=== PATIENT | female | born 1970 | race Caucasian/White ===

== ENCOUNTER 2020-12-16 12:37 | Emergency (ER) | payer OTHER, SELFPAY ==
[2020-12-16 12:52] VITALS: BP 150/84; PULSE 94; RESP 18; TEMP 36.3; O2SAT 97; BMI 34.0
[2020-12-16 13:09] VITALS: BP 148/87; PULSE 91; RESP 18; O2SAT 96
--- NOTE | 2020-12-16 13:45 | USCV_ITS ---
Geno Wetzel Age: 50 Gender: F : 1970 Exam Date: 12/16/2020 13:47 Ordering Phys: Felipa Addison Technologist: Arnav Hassan [place]am [place] [facility] [place]ication: EDEMA REDNESS AND SWELLING PROCEDURES: Venous duplex imaging was performed in only the left lower extremity. The following venous structures were evaluated: common femoral vein, profunda vein, proximal portion of the greater saphenous vein, superficial femoral vein, and the popliteal vein. In addition, the posterior tibial and peroneal trunk were evaluated. Serial compression, augmentation maneuvers, and spectral Doppler flow evaluation were performed. FINDINGS: Normal 2-D Doppler and augmentation and compressibility throughout the lower extremity venous structures. Additional imaging through the proximal calf veins also reveals no thrombus. Limited evaluation of the greater saphenous vein is patent with no thrombus. No abnormality in area of lower leg as indicated by patient. CONCLUSIONS No evidence of left lower extremity DVT. Dr. Gracie Laws DO (Electronically Signed) Final Date: 16 December 2020 14:53 S
[2020-12-16] MEDS: doxycycline 100 mg Tablet PO (13:57)
[2020-12-16] MEDS: ciprofloxacin 500 mg Tablet PO (13:57)
[2020-12-16] MEDS: HYDROcodone-acetaminophen 5-325 mg Tablet 1 TAB PO (14:00)
[2020-12-16 14:01] LABS: Basophils # 0.1 10^3/uL (0.0-0.1); Basophils % 0.7 %; Eosinophils # 0.4 10^3/uL (0.0-0.8); Eosinophils % 3.1 %; Hematocrit 39.1 % (37.0-47.0); Hemoglobin 13.1 g/dL (11.5-15.3); Lymphocytes # 3.6 10^3/uL (0.8-4.8); Lymphocytes % 30.7 %; Mean Corpuscular HGB Conc 33.5 g/dL (30.0-36.0); Mean Corpuscular Hemoglobin 30.5 pg (28.0-34.0); Mean Corpuscular Volume 91.1 fL (81-99); Mean Platelet Volume 9.3 fL (7.4-10.4); Monocytes # 0.8 10^3/uL (0.2-0.9); Monocytes % 6.9 %; Neutrophils # 6.39 10^3/uL (1.8-7.7); Neutrophils % 54.2 %; Nucleated Red Blood Cells % 0 %; Platelet Count 568 10^3/cmm (130-400); Red Blood Count 4.29 10^6/uL (4.1-5.3); Red Cell Distribution Width 13.7 % (12.1-15.1); White Blood Count 11.8 10^3/uL (4.0-10.0)
[2020-12-16 14:48] LABS: Alanine Aminotransferase 17 U/L (0-33); Albumin Level 4.1 g/dL (3.5-5.2); Alkaline Phosphatase 69 IU/L (35-105); Anion Gap 14.3 (5-19); Aspartate Amino Transferase 16 U/L (0-32); Blood Urea Nitrogen 17 mg/dL (6-20); Calcium 9.7 mg/dL (8.5-10.5); Carbon Dioxide 29 mmol/L (22-29); Chloride 97 mmol/L (98-107); Globulin 3.8 g/dL (1.3-4.6); Glomerular Filtration Rate 75.6 mL/min (90-130); Glucose 99 mg/dL (65-115); Osmolality Calculated 284 mOsm/kg (285-295); Potassium 4.3 mmol/L (3.5-5.1); Sodium 136 mmol/L (136-145); Total Bilirubin 0.3 mg/dL (0.15-1.2); Total Protein 7.9 g/dL (6.6-8.7)
--- NOTE | 2020-12-16 14:55 | ED_ITS ---
HPI - Extremity Problem General: Chief complaint: Extremity Problem,Nontraumatic Stated complaint: rash, edema, pain LLE Time Seen by Provider: 12/16/20 13:04 Source: patient Mode of arrival: ambulatory Limitations: no limitations History of Present Illness: HPI Narrative: Pleasant 50-year-old female patient presents to the emergency department with complaints of left lower extremity pain and swelling. She reports utilized a skin debridement tool to remove skin from her foot on 12/03/2020. She states on 12/04/2020, symptoms of redness swelling and pain started. She reports went to urgent care on 12/06/2020, received cephalexin as antibiotic for cellulitis of the left lower extremity. She went to urgent care today, was advised to come to the ED due to concern of blistering formation and increased swelling and pain of the left lower extremity. She denies fever chills, denies nausea vomiting. Reports compliance with cephalexin use. She reports history of MRSA, reports left lower extremity has improved some. She reports blistering has improved as well as redness. She reports leg was red all the way to the groin and now is only localized to the foot. MD Complaint: extremity pain and extremity swelling Onset (ago): day(s) Pain Consistency: intermittent Location: left and lower extremity Quality: burning and aching Radiation: proximal Relieving factors: immobilization and rest Exacerbating factors: range of motion, weight bearing, walking and exertion Associated symptoms: Reports no associated symptoms; Deny chest pain, fever(s) or rash Review of Systems General: Reports: 10 or more systems reviewed and unremarkable except in HPI and below Const: Denies: fever(s), chills or diaphoresis Eyes: Denies: blurry vision or eye redness ENMT: Denies: throat pain, dental pain or disequilibrium Card: Denies: chest pain, palpitations or irregular heart rhythm Resp: Denies: dyspnea, productive cough, non-productive cough or wheezing GI: Denies: abdominal pain, nausea or vomiting : Denies: difficulty voiding or dysuria Musc: Reports: extremity pain and extremity swelling; Denies: neck pain, back pain, joint pain or joint warmth Skin/Breast: Denies: rash or pruritus Neuro: Denies: headache(s), weakness in extremities or behavioral changes Psych: Denies: anxiety or depression Roge/Lymph: Denies: easy bruising PFSH ED PFSH: Social History Smoking and tobacco status: never smoked Alcohol intake: current Alcohol intake frequency: holidays/special occasions only Physical Exam Const: COMMON NORMALS: no acute distress, patient oriented x3, healthy appearing and alert GENERAL APPEARANCE: cooperative, comfortable and well hydrated HENMT: COMMON NORMALS: normocephalic, Normal external nose present and moist oral mucous membranes HEAD & SCALP: normocephalic NOSE: Normal external nose present Eye: COMMON NORMALS: Equal, round and reactive pupils present and EOMs intact bilaterally GENERAL EYE: appearance normal, both eyes and all related structures PUPIL: Yes Equal, round and reactive pupils present Neck/C-Spine: COMMON NORMALS: full ROM and no lymphadenopathy GENERAL: Yes normal visual inspection and Yes trachea midline CERVICAL SPINE: Yes cervical ROM normal Lymph: LYMPHATIC: no lymphadenopathy noted Chest: COMMONS NORMALS: normal inspection of the chest and normal palpation of entire chest wall Resp: COMMON NORMALS: normal respiratory effort, No retractions, No use of accessory muscles and clear to auscultation bilaterally EFFORT & INSPECTION: Yes able to speak in complete sentences AUSCULTATION: clear to auscultation bilaterally Cardio: COMMON NORMALS: regular rhythm, S1 normal heart sound present and S2 normal heart sound present RHYTHM: regular rhythm HEART SOUNDS: S1 normal heart sound present and S2 normal heart sound present GI: COMMON NORMALS: Soft to palpation and non-tender INSPECTION: Yes normal to inspection PALPATION: Yes Soft to palpation : COMMON NORMALS: Yes no CVA tenderness BLADDER/KIDNEY EXAM: Yes no CVA tenderness Back/Pelvis: COMMON NORMALS: no CVA tenderness and thoracic and lumbar spine normal to inspection Extremity: COMMON NORMALS: normal to inspection, full ROM and capillary refill normal GENERAL: Yes normal exam except as noted OTHER: unilateral edema/lymphedema LLE Neuro: COMMON NORMALS: patient oriented x3 and no focal motor deficits SENSORIUM/ORIENTATION: Yes alert SPEECH: speech normal Psych: COMMON NORMALS: mental status grossly normal, Normal thought process present and cooperative ACTIVITY/MOTOR BEHAVIOR: Yes appropriate eye contact THOUGHT PROCESS: Normal thought process present Skin: COMMON NORMALS: no rashes or lesions noted and turgor normal GENERAL SKIN EXAM: no rashes or lesions noted, elasticity normal and turgor normal WOUNDS: Yes wounds noted (Circumferential areas of erythema surrounding the left ankle) other (Beulla to the plantar medial side where skin was removed present.) NAILS: normal OTHER: Negative lymphadenitis present Course Vital Signs: Vital signs: Vital Signs Temperature 97.3 F L 12/16/20 12:52 Pulse Rate 88 12/16/20 15:56 Respiratory Rate 16 12/16/20 15:56 Blood Pressure 141/82 12/16/20 15:56 Pulse Oximetry 97 12/16/20 15:56 MDM - Extremity (Nontraumatic) MDM Narrative: Medical decision making narrative: 50-year-old female patient presents to the emergency department with history of cellulitis to the left lower extremity, onset 12/04/2020; she presents to the ED at the request of urgent care as 10-day dosing of cephalexin has not improved cellulitis. She has a history of MRSA, cephalexin not effective with MRSA treatment. CBC with slightly elevated white blood count of 11.8 thousand. Chemistry unremarkable. She did not exhibit fever chills nausea vomiting. She reported left lower extremity had improved over the past several days, venous ultrasound completed secondary to edema, negative DVT appreciated. No abscess or skin thickening appreciated on venous Doppler. Wounds to the left lower extremity closed, no drainage noted, advised to leave wounds open to air and to cleanse with sterile water daily. Advised no use of ointments or skin lotions. Referral to wound care completed, social services designee will assist with referral. Patient was placed on Cipro for Pseudomonas coverage and doxycycline for MRSA. Advised to return the emergency department she develop worsening symptoms. Lab Data: Labs: Lab Results 12/16/20 12/16/20 Range/Units 13:45 13:45 WBC 11.8 H (4.0-10.0) 10^3/ uL RBC 4.29 (4.1-5.3) 10^6/u L Hgb 13.1 (11.5-15.3) g/dL Hct 39.1 (37.0-47.0) % MCV 91.1 (81-99) fL MCH 30.5 (28.0-34.0) pg MCHC 33.5 (30.0-36.0) g/dL RDW 13.7 (12.1-15.1) % Plt Count 568 H (130-400) 10^3/c mm MPV 9.3 (7.4-10.4) fL Neut % (Auto) 54.2 % Lymph % (Auto) 30.7 % Grimes % (Auto) 6.9 % Eos % (Auto) 3.1 % Baso % (Auto) 0.7 % Neut # (Auto) 6.39 (1.8-7.7) 10^3/u L Lymph # (Auto) 3.6 (0.8-4.8) 10^3/u L Grimes # (Auto) 0.8 (0.2-0.9) 10^3/u L Eos # (Auto) 0.4 (0.0-0.8) 10^3/u L Baso # (Auto) 0.1 (0.0-0.1) 10^3/u L Nucleated RBC % (a uto) 0 % Nucleated RBCs # 0.0 /100WBC Sodium 136 (136-145) mmol/L Potassium 4.3 (3.5-5.1) mmol/L Chloride 97 L (98-107) mmol/L Carbon Dioxide 29 (22-29) mmol/L Anion Gap 14.3 (5-19) BUN 17 (6-20) mg/dL Creatinine 0.8 (0.5-0.9) mg/dL GFR Calculation 75.6 L (90-130) mL/min Glucose 99 (65-115) mg/dL Calculated Osmolal ity 284 L (285-295) mOsm/k g Calcium 9.7 (8.5-10.5) mg/dL Total Bilirubin 0.3 (0.15-1.2) mg/dL AST 16 (0-32) U/L ALT 17 (0-33) U/L Alkaline Phosphata se 69 (35-105) IU/L Total Protein 7.9 (6.6-8.7) g/dL Albumin 4.1 (3.5-5.2) g/dL Globulin 3.8 (1.3-4.6) g/dL Imaging Data^: Xray Ortho: Radiologist's impression: Ultrasound Report Signed Patient: Geno Wetzel Unit #: [id number] : 1970 Age/Sex: 50 / F ADM Date: 12/16/20 Loc: ER Room/Bed: Attending Dr: Ordering Provider/Ordering MD: Felipa Addison Date of Service: 12/16/20 Procedure(s): [place] [id number] Accession Number(s): [id number] Report Number: [id number] Geno Wetzel Age: 50 Gender: F : 1970 Exam Date: 12/16/2020 13:47 Ordering Phys: Felipa Addison Technologist: Arnav Hassan Exam Location: [facility] [place] Indication: EDEMA REDNESS AND SWELLING PROCEDURES: Venous duplex imaging was performed in only the left lower extremity. The following venous structures were evaluated: common femoral vein, profunda vein, proximal portion of the greater saphenous vein, superficial femoral vein, and the popliteal vein. In addition, the posterior tibial and peroneal trunk were evaluated. Serial compression, augmentation maneuvers, and spectral Doppler flow evaluation were performed. FINDINGS: Normal 2-D Doppler and augmentation and compressibility throughout the lower extremity venous structures. Additional imaging through the proximal calf veins also reveals no thrombus. Limited evaluation of the greater saphenous vein is patent with no thrombus. No abnormality in area of lower leg as indicated by patient. CONCLUSIONS No evidence of left lower extremity DVT. Dr. Gracie Laws DO (Electronically Signed) Final Date: 16 December 2020 14:53 S Discharge Plan Discharge Patient Disposition: Home Clinical Impression: Cellulitis of left leg, Acute lymphadenitis of lower extremity Condition: Stable Prescriptions: New ciprofloxacin HCl 500 mg tablet 500 mg PO BID Qty: 20 RF: 0 doxycycline hyclate 100 mg capsule 100 mg PO BID 10 Days Qty: 20 RF: 0 hydrocodone-acetaminophen 5-325 mg tablet 1 tab PO Q4H PRN (Reason: pain) Qty: 7 RF: 0 Held tizanidine [Zanaflex] 2 mg capsule 2 mg PO TID RF: 0 Hold Instructions: Resume on 12/27/20. Discontinued cephalexin 500 mg capsule 500 mg PO TID 3 Days Qty: 9 RF: 0 No Action ibuprofen 800 mg tablet 800 mg PO TID RF: 0 pregabalin 50 mg capsule 50 mg PO BID RF: 0 estradiol 0.05 mg/24 hr patch semiweekly transdermal RF: 0 Discharge Orders: Discharge ED (Routine); Ordered 12/16/20 Ordered By: Felipa Addison Discharge Diet: Usual diet Discharge Activity: Limit activity as instructed Patient Instructions: Crutch Instructions (ED), Cellulitis (ED), Lymphadenopathy (ED), Opioid Safety Activity Restrictions/Additional Instructions: Keep the left lower extremity elevated as much as possible as this will help with pain and swelling Utilize crutches to limit ambulation, weightbearing health services information specialist will be contacting you with a follow-up appointment with wound care for infection. Complete antibiotics until all gone Continue ibuprofen as needed for pain, may take Tylenol as needed for mild pain, reserve hydrocodone for moderate to severe pain Return to the emergency department if you develop fever, vomiting or worsening symptoms such as redness and swelling that tracks up left lower extremity. Cleanse left lower extremity with sterile water and soap once daily, leave wounds open to air. 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
[2020-12-16 15:56] VITALS: BP 141/82; PULSE 88; RESP 16; O2SAT 97
--- NOTE | 2020-12-17 15:12 | DCPLANNER ---
manager skilled had message to schedule a follow up appointment for patient with wound care. manager skilled called the wound care clinic, spoke with Darion, gave clinic patients information, clinic will call patient with appointment information.
--- NOTE | 2020-12-29 15:21 | DCPLANNER ---
Patient had a follow up appointment with Wound Care - patient did attend appointment.
== END 2020-12-16 15:57 | disposition home or self-care (01) ==
PROVIDERS: Emergency Provider Nurse Practitioner Family
DX: L03.116 Cellulitis of left lower limb (principal); L04.3 Acute lymphadenitis of lower limb
CPT/HCPCS: 80053; 85025; 87040; 93971; 99283

== ENCOUNTER 2020-12-23 09:50 | Outpatient (CLI) | payer OTHER, SELFPAY | END 2020-12-23 09:51 | disposition home or self-care (01) | LOC: WOUND 09:50 | PROVIDERS: Visit Provider Nurse Practitioner Family | DX: L97.522 Non-pressure chronic ulcer of other part of left foot with fat layer exposed (principal) | CPT/HCPCS: G0463 ==

== ENCOUNTER 2021-01-06 09:00 | Outpatient (CLI) | payer OTHER, SELFPAY | END 2021-01-06 09:01 | disposition home or self-care (01) | LOC: WOUND 09:01 | PROVIDERS: Visit Provider Nurse Practitioner Family | DX: Z09 Encounter for follow-up examination after completed treatment for conditions other than malignant neoplasm (principal) | CPT/HCPCS: 99212; A6530 ==

== ENCOUNTER 2021-05-19 06:00 | Outpatient (RCR) | payer SELFPAY | END 2021-05-28 23:59 | disposition home or self-care (01) | LOC: SPT 06:00 | PROVIDERS: PCP Family Medicine; Referring Provider Family Medicine; Visit Provider Family Medicine | DX: M54.40 Lumbago with sciatica, unspecified side (principal); G89.29 Other chronic pain | CPT/HCPCS: 97162 ==

== ENCOUNTER → 2021-06-20 10:36 | Outpatient (BNVA) | payer OTHER, SELFPAY | PROVIDERS: PCP Family Medicine; Visit Provider Family Medicine | DX: R60.0 Localized edema (principal) | CPT/HCPCS: 80048 ==

== ENCOUNTER 2021-07-07 12:57 | Outpatient (CLI) | payer OTHER, SELFPAY ==
--- NOTE | 2021-07-07 12:45 | USCV_ITS ---
Geno Wetzel Age: 51 Gender: F : 1970 Exam Date: 07/07/2021 13:08 Ordering Phys: Michaeal Okeefe DO Technologist: Exam [place] [facility] [place]: HISTORY: PROCEDURES: Left duplex Venous Insufficiency study of the Deep and Superficial systems was carried out according to normal protocol with the patient in supine positon for deep system and dependent position for the superficial system. FINDINGS: All deep veins demonstrated compressibility without evidence of intraluminal thrombus or increased echogenicity. Spectral analysis of Doppler signals demonstrates normal response to compression maneuvers indicating patency without obstruction. Reflux determinations were made with the patient in the dependent position, the weight being on the contralateral leg. Vein measurements and reflux times are listed below were applicable. No notable reflux was seen at this time. CONCLUSIONS No evidence of DVT in the above-mentioned identifiable veins on the left side. No significant venous reflux Normal/slightly dilated superficial veins Dr Anel Herrera MD [facility] (Electronically Signed) Final Date: 11 July 2021 13:53 S
== END 2021-07-07 12:58 | disposition home or self-care (01) ==
PROVIDERS: PCP Family Medicine; Visit Provider Family Medicine
DX: R60.0 Localized edema (principal)
CPT/HCPCS: 93971

== ENCOUNTER 2021-07-25 09:14 | Outpatient (CLI) | payer OTHER, SELFPAY ==
--- NOTE | 2021-07-25 09:00 | MM_ITS ---
WS: [id number] BILATERAL DIGITAL SCREENING MAMMOGRAPHY WITH CAD CLINICAL INFORMATION: screening mammogram HISTORY: Screening mammogram. No current complaints. COMPARISON: None. TECHNIQUE: Bilateral CC and MLO views. FINDINGS: Scattered fibroglandular densities bilaterally. Ovoid asymmetric density upper outer right breast melani suring 10 mm. Recommend spot compression views and ultrasound for further evaluation. Left breast is unremarkable. MM/[place] [id number] IMPRESSION: BI-RADS: 0-Incomplete: Need additional imaging evaluation FOLLOW UP: Need Additional Imaging Recommend RIGHT diagnostic mammography and ultrasound in further evaluation.
== END 2021-07-25 09:15 | disposition home or self-care (01) ==
LOC: RADSHAW 09:18
PROVIDERS: PCP Family Medicine; Visit Provider Family Medicine
DX: Z12.31 Encounter for screening mammogram for malignant neoplasm of breast (principal)
CPT/HCPCS: 77067

== ENCOUNTER → 2021-08-02 10:43 | Outpatient (BNVA) | payer OTHER, SELFPAY | PROVIDERS: PCP Family Medicine; Referring Provider Family Medicine; Visit Provider Anesthesiology Pain Medicine | DX: G89.29 Other chronic pain (principal); M51.16 Intervertebral disc disorders with radiculopathy, lumbar region; M48.061 Spinal stenosis, lumbar region without neurogenic claudication; M79.604 Pain in right leg; M19.90 Unspecified osteoarthritis, unspecified site; Z79.891 Long term (current) use of opiate analgesic | CPT/HCPCS: 99205 ==

== ENCOUNTER → 2021-08-15 14:16 | Outpatient (BNVA) | payer OTHER, SELFPAY | PROVIDERS: PCP Family Medicine; Visit Provider Anesthesiology Pain Medicine | DX: G89.29 Other chronic pain (principal); M51.16 Intervertebral disc disorders with radiculopathy, lumbar region | CPT/HCPCS: 62323; J1040; J3490 ==

== ENCOUNTER → 2021-08-23 10:31 | Outpatient (BNVA) | payer OTHER, SELFPAY | PROVIDERS: PCP Family Medicine; Visit Provider Orthopaedic Surgery | DX: M51.16 Intervertebral disc disorders with radiculopathy, lumbar region (principal) | CPT/HCPCS: 72110 ==

== ENCOUNTER → 2021-08-29 10:13 | Outpatient (BNVA) | payer OTHER, SELFPAY | PROVIDERS: PCP Family Medicine; Visit Provider Anesthesiology Pain Medicine | DX: G89.29 Other chronic pain (principal); M48.062 Spinal stenosis, lumbar region with neurogenic claudication; M51.16 Intervertebral disc disorders with radiculopathy, lumbar region; M47.816 Spondylosis without myelopathy or radiculopathy, lumbar region; M79.604 Pain in right leg | CPT/HCPCS: 99214 ==

== ENCOUNTER 2021-09-01 10:16 | Outpatient (CLI) | payer OTHER, SELFPAY ==
--- NOTE | 2021-09-01 10:30 | MM_ITS ---
WS: [id number] RIGHT DIGITAL MAMMOGRAPHY WITH CAD CLINICAL INFORMATION: abnormal mammo COMPARISON: July 25, 2021 TECHNIQUE: 3 views of the right breast were obtained. FINDINGS: Scattered fibroglandular densities of the right breast. Stable ovoid asymmetry upper outer right amara st measuring 10 mm. Ultrasound is pending. ULTRASOUND BREAST RIGHT TECHNIQUE: Ultrasound right breast focused area of concern. CLINICAL INFORMATION: abnormal mammo FINDINGS: Ultrasound right breast at the 9 to 12:00 position. Underlying dense parenchymal tissue appears to co rrespond to the mammographic findings. Incidental ductal ectasia. No suspicious cystic or solid lesio ns. No lesions to target for biopsy. Recommend return to annual screening mammography. MM/[place] [id number] IMPRESSION: BI-RADS: 2-Benign FOLLOW UP: 1 Year Follow-up Recommend return to annual screening mammography.
--- NOTE | 2021-09-01 11:00 | US_ITS ---
WS: [id number] RIGHT DIGITAL MAMMOGRAPHY WITH CAD CLINICAL INFORMATION: abnormal mammo COMPARISON: July 25, 2021 TECHNIQUE: 3 views of the right breast were obtained. FINDINGS: Scattered fibroglandular densities of the right breast. Stable ovoid asymmetry upper outer right amara st measuring 10 mm. Ultrasound is pending. ULTRASOUND BREAST RIGHT TECHNIQUE: Ultrasound right breast focused area of concern. CLINICAL INFORMATION: abnormal mammo FINDINGS: Ultrasound right breast at the 9 to 12:00 position. Underlying dense parenchymal tissue appears to co rrespond to the mammographic findings. Incidental ductal ectasia. No suspicious cystic or solid lesio ns. No lesions to target for biopsy. Recommend return to annual screening mammography. US/US breast RT limited* [id number] IMPRESSION: BI-RADS: 2-Benign FOLLOW UP: 1 Year Follow-up Recommend return to annual screening mammography.
== END 2021-09-01 10:17 | disposition home or self-care (01) ==
PROVIDERS: PCP Family Medicine; Visit Provider Family Medicine
DX: R92.8 Other abnormal and inconclusive findings on diagnostic imaging of breast (principal)
CPT/HCPCS: 76642; 77065

== ENCOUNTER 2021-09-01 10:45 | Outpatient (CLI) | payer OTHER, SELFPAY ==
--- NOTE | 2021-09-01 11:45 | MR_ITS ---
WS: [id number] MRI LUMBAR SPINE NONCONTRAST TECHNIQUE: Sagittal T1, T2 and STIR imaging. Axial T1 and T2 imaging. CLINICAL INFORMATION: M51.16 - Intervertebral disc disorders with radiculopathy... COMPARISON: None. FINDINGS: Mild lumbar curve. No acute compression. Prior postoperative changes laminectomy defects and partial discectomy L5-S1. Grade 1 anterolisthesis L4 on L5. L1-L2: Normal. L2-L3: Normal. L3-L4: No significant disc bulging. Mild facet arthropathy. Small left foraminal protrusion with mild left and no significant right foraminal narrowing. Mild facet arthropathy. L4-L5: Slight anterolisthesis L4 on L5. Disc osteophyte complex with endplate ridging. Central and ri ght pericentral disc protrusion impinges the traversing right greater than left L5 nerve roots. Moder ate central canal stenosis. Mild right L4-5 foraminal narrowing. Moderate to advanced facet arthropat hy with ligamentum flavum flavum hypertrophy. L5-S1: Mild disc bulging with osteophytic ridging. Contact of the traversing right greater than left S1 nerve roots. Right hemilaminectomy. Foramen are patent. Visualized pelvic bony structures: Normal. Paravertebral soft tissues: Normal. MR/MR lumbar spine wo con* [id number] IMPRESSION: 1. Mild lumbar curve. No acute compression. 2. Grade 1 anterolisthesis L4 on L5 with moderate central canal stenosis. Impi ngement on the traversing right greater than left L5 nerve roots. Mild right L4 -5 foraminal narrowing. 3. Prior right hemilaminectomy L5-S1. Mild residual disc osteophytic ridging w ith slight contact of the right S1 nerve root. 4. Small left foraminal protrusion L3-4 contacts the exiting left L3 nerve grace t with mild left foraminal narrowing. 5. Advanced facet arthropathy L4-5.
== END 2021-09-01 10:46 | disposition home or self-care (01) ==
LOC: RADSHAW 10:46
PROVIDERS: PCP Family Medicine; Visit Provider Orthopaedic Surgery
DX: M51.16 Intervertebral disc disorders with radiculopathy, lumbar region (principal); G89.29 Other chronic pain; M47.816 Spondylosis without myelopathy or radiculopathy, lumbar region; M51.26 Other intervertebral disc displacement, lumbar region
CPT/HCPCS: 72148

== ENCOUNTER → 2021-09-15 10:46 | Outpatient (BNVA) | payer OTHER, SELFPAY | PROVIDERS: PCP Family Medicine; Visit Provider Anesthesiology Pain Medicine | DX: G89.29 Other chronic pain (principal); M48.062 Spinal stenosis, lumbar region with neurogenic claudication; M51.16 Intervertebral disc disorders with radiculopathy, lumbar region; M47.816 Spondylosis without myelopathy or radiculopathy, lumbar region; M79.604 Pain in right leg | CPT/HCPCS: 99214 ==

== ENCOUNTER → 2021-10-10 11:10 | Outpatient (BNVA) | payer OTHER, SELFPAY | PROVIDERS: PCP Family Medicine; Visit Provider Family Medicine | DX: Z01.818 Encounter for other preprocedural examination (principal) | CPT/HCPCS: 80053; 85025 ==

== ENCOUNTER → 2021-11-28 15:40 | Outpatient (BNVA) | payer OTHER, SELFPAY | PROVIDERS: PCP Family Medicine; Visit Provider Obstetrics & Gynecology | DX: Z12.4 Encounter for screening for malignant neoplasm of cervix (principal) | CPT/HCPCS: 87624 ==

== ENCOUNTER 2022-02-07 10:22 | Outpatient (RCR) | payer OTHER, SELFPAY | END 2022-02-25 23:59 | disposition home or self-care (01) | LOC: SPT 10:22 | PROVIDERS: PCP Family Medicine; Referring Provider Physician Assistant; Visit Provider Physician Assistant | DX: Z48.89 Encounter for other specified surgical aftercare (principal); Z98.890 Other specified postprocedural states | CPT/HCPCS: 97161 ==

== ENCOUNTER 2022-11-09 10:43 | Outpatient (CLI) | payer MEDICARE, SELFPAY ==
--- NOTE | 2022-11-09 10:52 | MM_ITS ---
WS: [id number] BILATERAL SCREENING DIGITAL TOMOSYNTHESIS MAMMOGRAM WITH CAD HISTORY: SCREENING COMPARISON: 07/25/2021 and 09/01/2021 Bilateral CC and MLO views with tomosynthesis and synthetic mammography submitted. Computer aided det ection analyzed. Breast composition: The breasts are heterogeneously dense, which may obscure small masses. No suspici ous masses, microcalcifications or architectural distortion. MM/[place] [id number] IMPRESSION: BI-RADS: 1-Negative FOLLOW UP: 1 Year Follow-up
== END 2022-11-09 10:44 | disposition home or self-care (01) ==
PROVIDERS: PCP Family Medicine; Visit Provider Nurse Practitioner Family
DX: Z12.31 Encounter for screening mammogram for malignant neoplasm of breast (principal)
CPT/HCPCS: 77063; 77067

== ENCOUNTER 2023-01-18 13:12 | Outpatient (CLI) | payer MEDICARE, MEDICAID, SELFPAY ==
--- NOTE | 2023-01-18 13:32 | XR_ITS ---
WS: [id number] EXAMINATION: XR knee LT 3V* [id number] REASON FOR EXAM: ACUTE PAIN OF LEFT KNEE/MUSCLE STRAIN COMPARISON: None available. ORDER DATE: 01/18/2023 1:34 PM FINDINGS: There is no sign of any acute osseous or articular abnormality. There are no specific soft tissue abn ormalities. XR/XR knee LT 3V* [id number] IMPRESSION: No acute abnormality
== END 2023-01-18 13:13 | disposition home or self-care (01) ==
LOC: RAD 13:21
PROVIDERS: PCP Family Medicine; Visit Provider Nurse Practitioner Family
DX: S86.912A Strain of unspecified muscle(s) and tendon(s) at lower leg level, left leg, initial encounter (principal); M25.562 Pain in left knee; X58.XXXA Exposure to other specified factors, initial encounter
CPT/HCPCS: 73562

== ENCOUNTER 2023-03-07 04:59 | Emergency (ER) | payer MEDICARE, MEDICAID, SELFPAY ==
--- NOTE | 2023-03-07 05:02 | XRR_ITS ---
PROCEDURE INFORMATION: Exam: XR Chest Exam date and time: 03/07/2023 5:06 AM Age: 53 years old Clinical indication: Pain; Chest pressure; Additional info: Cp TECHNIQUE: Imaging protocol: Radiologic exam of the chest. Views: 1 view. COMPARISON: No relevant prior studies available. FINDINGS: Lungs: No consolidation. Pleural spaces: Unremarkable. No pleural effusion. No pneumothorax. Heart/Mediastinum: No cardiomegaly. Bones/joints: No acute fracture. XR/XR chest 1V portable [id number] IMPRESSION: No acute findings.
--- NOTE | 2023-03-07 05:02 | ECG_ITS ---
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 Measurements Intervals [place] Rate: 60 P: 45 [place]: 177 QRS: -3 QRSD: 81 T: 48 QT: 399 QTc: 400 Interpretive Statements SINUS RHYTHM POSSIBLE LEFT ATRIAL ENLARGEMENT [-0.1mV P-WAVE IN V1/V2] POSSIBLE LEFT VENTRICULAR HYPERTROPHY [VOLTAGE CRITERIA PLUS LAE OR QRS WIDENING] No previous ECG available for comparison Electronically Signed On 03-07-2023 20:59:49 CDT by Anel Herrera M.D. [id number]
[2023-03-07 05:04] VITALS: BP 132/86; PULSE 69; RESP 18; TEMP 36.4; O2SAT 98; BMI 26.4
--- NOTE | 2023-03-07 05:09 | ED_ITS ---
Documented by User: Michaelle Sofia MD 03/07/23 05:13 HPI - Chest Pain General: Chief Complaint: Chest Pain Stated Complaint: Chest pain Time Seen by Provider: 03/07/23 05:19 Source: patient Mode of arrival: ambulatory Limitations: no limitations History of Present Illness: 53-year-old female states she been having some chest pain since last night 1130. She states that been a burning pain in her chest she denies any fever or cough. She states she just got over a viral GI bug and had not taken her Lasix in 2 days and feels like she is a little bloated as well. She denies any worsening proving factors she is in no distress here. Associated symptoms: Deny abdominal pain, dyspnea, fever(s), nausea or vomiting Review of Systems Const: Denies: fever(s), chills or change in appetite Eyes: Denies: eye discomfort ENMT: Denies: throat pain or dental pain Card: Reports: chest pain Resp: Denies: dyspnea GI: Denies: abdominal pain, nausea, vomiting or diarrhea : Denies: dysuria Musc: Denies: neck pain or back pain Neuro: Denies: headache(s) Roge/Lymph: Denies: easy bruising All/Imm: Denies: urticaria PFSH ED PFSH: Medical History Asthma Bipolar 2 disorder Chronic low back pain with sciatica Degenerative disc disease Endometriosis History of ectopic History of ovarian cyst Surgical History H/O microdiscectomy L5-S1 H/O tubal ligation H/O: hysterectomy History of 3 sections History of appendectomy History of D&C History of elbow surgery Right History of exploratory laparotomy History of tympanostomy tube placement Family History Father Cancer COLON Other Diabetes FHx: cataracts Hypertension Lung disease Social History Smoking and tobacco status: never smoked Second hand smoke exposure: No Alcohol intake: current Alcohol intake frequency: holidays/special occasions only Alcohol type: beer and wine Substance/Drug Use: never Physical Exam Const: COMMON NORMALS: no acute distress, patient oriented x3 and healthy appearing HENMT: COMMON NORMALS: normocephalic and atraumatic HEAD & SCALP: normocephalic and atraumatic Eye: COMMON NORMALS: conjunctivae normal CONJUNCTIVA: Yes conjunctivae normal Neck/C-Spine: COMMON NORMALS: full ROM and supple Chest: COMMONS NORMALS: normal inspection of the chest and normal palpation of entire chest wall Resp: COMMON NORMALS: normal respiratory effort, No retractions, No use of accessory muscles and clear to auscultation bilaterally AUSCULTATION: clear to auscultation bilaterally Cardio: COMMON NORMALS: regular rate, regular rhythm and No murmurs present (Cardio) RATE: regular rate RHYTHM: regular rhythm GI: COMMON NORMALS: Normal to inspection, nondistended, normoactive bowel sounds present, Soft to palpation, non-tender and no masses PALPATION: Yes Soft to palpation Extremity: COMMON NORMALS: normal to inspection and full ROM Neuro: COMMON NORMALS: patient oriented x3, moves all extremities and no focal motor deficits Psych: COMMON NORMALS: mental status grossly normal, Normal thought process present and cooperative THOUGHT PROCESS: Normal thought process present Skin: COMMON NORMALS: no rashes or lesions noted and no wounds GENERAL SKIN EXAM: no rashes or lesions noted Course Vital Signs: Vital signs: Vital Signs Temperature 97.5 F L 03/07/23 05:04 Pulse Rate 55 L 03/07/23 07:00 Respiratory Rate 16 03/07/23 06:25 Blood Pressure 112/80 03/07/23 07:00 Pulse Oximetry 96 03/07/23 07:00 Oxygen Delivery Me thod Room Air 03/07/23 07:00 MDM - Chest Pain Medical Records I reviewed the patient's medical records. Lab Data I reviewed the patient's lab results. 03/07/23 05:09 03/07/23 05:09 Radiology Impressions Chest X-Ray 03/07/23 05:02 IMPRESSION: No acute findings. Laboratory Results WBC 8.0 10^3/uL (4.0-10.0) 03/07/23 05:09 RBC 4.22 10^6/uL (4.1-5.3) 03/07/23 05:09 Hgb 13.0 g/dL (11.5-15.3) 03/07/23 05:09 Hct 39.0 % (37.0-47.0) 03/07/23 05:09 MCV 92.4 fl (81-99) 03/07/23 05:09 MCH 30.8 pg (28.0-34.0) 03/07/23 05:09 MCHC 33.3 g/dL (30.0-36.0) 03/07/23 05:09 RDW 13.0 % (12.1-15.1) 03/07/23 05:09 Plt Count 332 10^3/cmm (130-400) 03/07/23 05:09 MPV 9.0 fL (7.4-10.4) 03/07/23 05:09 Neut % (Auto) 55.8 % 03/07/23 05:09 Lymph % (Auto) 29.5 % 03/07/23 05:09 Cuming % (Auto) 10.7 % 03/07/23 05:09 Eos % (Auto) 3.4 % 03/07/23 05:09 Baso % (Auto) 0.3 % 03/07/23 05:09 Neut # (Auto) 4.46 10^3/uL (1.8-7.7) 03/07/23 05:09 Lymph # (Auto) 2.4 10^3/uL (0.8-4.8) 03/07/23 05:09 Cuming # (Auto) 0.9 10^3/uL (0.2-0.9) 03/07/23 05:09 Eos # (Auto) 0.3 10^3/uL (0.0-0.8) 03/07/23 05:09 Baso # (Auto) 0.0 10^3/uL (0.0-0.1) 03/07/23 05:09 Nucleated RBC % (auto) 0 % 03/07/23 05:09 Nucleated RBCs # 0.0 /100WBC 03/07/23 05:09 PT 13.30 SECONDS (12.1-14.9) 03/07/23 05:09 INR 0.98 (0.8-1.2) 03/07/23 05:09 Sodium 141 mmol/L (136-145) 03/07/23 05:09 Potassium 4.2 mmol/L (3.5-5.1) 03/07/23 05:09 Chloride 103 mmol/L (98-107) 03/07/23 05:09 Carbon Dioxide 27 mmol/L (22-29) 03/07/23 05:09 Anion Gap 15.2 (5-19) 03/07/23 05:09 BUN 17 mg/dL (6-20) 03/07/23 05:09 Creatinine 0.7 mg/dL (0.5-0.9) 03/07/23 05:09 GFR Calculation 87.2 mL/min (90-130) L 03/07/23 05:09 Glucose 89 mg/dL (65-115) 03/07/23 05:09 Calculated Osmolality 293 mOsm/kg (285-295) 03/07/23 05:09 Calcium 8.8 mg/dL (8.5-10.5) 03/07/23 05:09 Total Bilirubin 0.3 mg/dL (0.15-1.2) 03/07/23 05:09 AST 24 U/L (0-32) 03/07/23 05:09 ALT 19 U/L (0-33) 03/07/23 05:09 Alkaline Phosphatase 55 U/L (35-105) 03/07/23 05:09 Troponin T Baseline 6 ng/L (0-10) 03/07/23 05:09 Troponin T 120 Minute 6.00 ng/L (0-10) 03/07/23 07:03 Delta Troponin T 0 ABS# (0-10) 03/07/23 07:03 NT-Pro-B Natriuret Pep 60 pg/mL (0-125) 03/07/23 05:09 Total Protein 7.3 g/dL (6.6-8.7) 03/07/23 05:09 Albumin 4.2 g/dL (3.5-5.2) 03/07/23 05:09 Globulin 3.1 g/dL (1.3-4.6) 03/07/23 05:09 Lipase 42 U/L (13-60) 03/07/23 05:09 EKG Data EKG 1: I personally reviewed and interpreted this EKG as follows: EKG interpretation date: 03/07/23 EKG interpretation time: 05:06 Interpretation: nsr hr [address] or t wave abnormalities qrs 89 qtc 412 Discharge Plan Discharge Patient Disposition: Home Clinical Impression: Atypical chest pain Condition: Stable Prescriptions: New aspirin 81 mg tablet,delayed release (DR/EC) 81 mg PO DAILY Qty: 30 0RF No Action vitamin B complex Tablet 1 tab PO DAILY cholecalciferol (vitamin D3) 25 mcg (1,000 unit) capsule 25 mcg PO DAILY loytxaw-ruvn-nofyt-oreg-capryl 100 mg-150 mg- 50 mg-150 mg capsule PO (DME) cane Device See Rx Instructions .Route Qty: 1 0RF Rx Instructions: As directed CBD Gummies PO BID polyethylene glycol 3350 [Miralax] 17 gram/dose powder 17 g PO DAILY estradiol [Gardenia] 0.075 mg/24 hr patch semiweekly 1 patch topical .twice weekly Qty: 8 12RF levalbuterol tartrate [Xopenex HFA] 45 mcg/actuation HFA aerosol inhaler 2 inh inhalation Q6H 90 Days Qty: 30 1RF ibuprofen 800 mg tablet 800 mg PO TID 90 Days Qty: 270 1RF Rx Instructions: 340 B furosemide 20 mg tablet 20 mg PO .1-2 tabs daily 90 Days Qty: 180 0RF tizanidine 2 mg tablet 2 mg PO TID PRN (Reason: muscle spasticity) 90 Days Qty: 270 0RF Rx Instructions: 340 B fluticasone propionate [Flonase Allergy Relief] 50 mcg/actuation spray,suspension 2 spray intranasal DAILY 90 Days Qty: 48 0RF Rx Instructions: administer into each nostril Discharge Orders: Discharge ED (Routine); Ordered 03/07/23 Ordered By: Cj Cardona Referrals: Carey Stout DO [Primary Care Provider] - Discharge Diet: Usual diet Discharge Activity: Limit activity as instructed Patient Instructions: Opioid Safety, Pain Management Activity Restrictions/Additional Instructions: You were seen today for chest pain. Your EKGs and cardiac enzymes were negative. Recommend you increase your Lasix to 40 daily for the next 3 days. Follow-up with your primary care doctor early next week in addition to this we will set you up for an outpatient Lexiscan sestamibi stress test avoid exertional activities until this is completed. Also recommend that you start taking a baby aspirin daily. 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 [employer] Documented by User: Cj Cardona DO 03/07/23 07:56 HPI - Chest Pain General: Chief Complaint: Chest Pain Stated Complaint: Chest pain Time Seen by Provider: 03/07/23 05:19 PFSH ED PFSH: Medical History Asthma Bipolar 2 disorder Chronic low back pain with sciatica Degenerative disc disease Endometriosis History of ectopic History of ovarian cyst Surgical History H/O microdiscectomy L5-S1 H/O tubal ligation H/O: hysterectomy History of 3 sections History of appendectomy History of D&C History of elbow surgery Right History of exploratory laparotomy History of tympanostomy tube placement Family History Father Cancer COLON Other Diabetes FHx: cataracts Hypertension Lung disease Social History Smoking and tobacco status: never smoked Second hand smoke exposure: No Alcohol intake: current Alcohol intake frequency: holidays/special occasions only Alcohol type: beer and wine Substance/Drug Use: never Course Vital Signs: Vital signs: Vital Signs Temperature 97.5 F L 03/07/23 05:04 Pulse Rate 55 L 03/07/23 07:00 Respiratory Rate 16 03/07/23 06:25 Blood Pressure 112/80 03/07/23 07:00 Pulse Oximetry 96 03/07/23 07:00 Oxygen Delivery Me thod Room Air 03/07/23 07:00 MDM - Chest Pain Medical Decision Making Care assumed at change of shift from Dr. Sofia. Chart reviewed EKGs did not show any acute ST changes patient is feeling better after diuresis and a GI cocktail. We will discharge her home with Lasix 40 daily for the next 3 days follow-up with her primary care doctor. In addition to this ask her to take a baby aspirin daily. We will set her up for an outpatient Lexiscan sestamibi st ress test using worsening change symptoms return to the emergency room. Lab Data 03/07/23 05:09 03/07/23 05:09 Radiology Impressions Chest X-Ray 03/07/23 05:02 IMPRESSION: No acute findings. Laboratory Results WBC 8.0 10^3/uL (4.0-10.0) 03/07/23 05:09 RBC 4.22 10^6/uL (4.1-5.3) 03/07/23 05:09 Hgb 13.0 g/dL (11.5-15.3) 03/07/23 05:09 Hct 39.0 % (37.0-47.0) 03/07/23 05:09 MCV 92.4 fl (81-99) 03/07/23 05:09 MCH 30.8 pg (28.0-34.0) 03/07/23 05:09 MCHC 33.3 g/dL (30.0-36.0) 03/07/23 05:09 RDW 13.0 % (12.1-15.1) 03/07/23 05:09 Plt Count 332 10^3/cmm (130-400) 03/07/23 05:09 MPV 9.0 fL (7.4-10.4) 03/07/23 05:09 Neut % (Auto) 55.8 % 03/07/23 05:09 Lymph % (Auto) 29.5 % 03/07/23 05:09 Cuming % (Auto) 10.7 % 03/07/23 05:09 Eos % (Auto) 3.4 % 03/07/23 05:09 Baso % (Auto) 0.3 % 03/07/23 05:09 Neut # (Auto) 4.46 10^3/uL (1.8-7.7) 03/07/23 05:09 Lymph # (Auto) 2.4 10^3/uL (0.8-4.8) 03/07/23 05:09 Cuming # (Auto) 0.9 10^3/uL (0.2-0.9) 03/07/23 05:09 Eos # (Auto) 0.3 10^3/uL (0.0-0.8) 03/07/23 05:09 Baso # (Auto) 0.0 10^3/uL (0.0-0.1) 03/07/23 05:09 Nucleated RBC % (auto) 0 % 03/07/23 05:09 Nucleated RBCs # 0.0 /100WBC 03/07/23 05:09 PT 13.30 SECONDS (12.1-14.9) 03/07/23 05:09 INR 0.98 (0.8-1.2) 03/07/23 05:09 Sodium 141 mmol/L (136-145) 03/07/23 05:09 Potassium 4.2 mmol/L (3.5-5.1) 03/07/23 05:09 Chloride 103 mmol/L (98-107) 03/07/23 05:09 Carbon Dioxide 27 mmol/L (22-29) 03/07/23 05:09 Anion Gap 15.2 (5-19) 03/07/23 05:09 BUN 17 mg/dL (6-20) 03/07/23 05:09 Creatinine 0.7 mg/dL (0.5-0.9) 03/07/23 05:09 GFR Calculation 87.2 mL/min (90-130) L 03/07/23 05:09 Glucose 89 mg/dL (65-115) 03/07/23 05:09 Calculated Osmolality 293 mOsm/kg (285-295) 03/07/23 05:09 Calcium 8.8 mg/dL (8.5-10.5) 03/07/23 05:09 Total Bilirubin 0.3 mg/dL (0.15-1.2) 03/07/23 05:09 AST 24 U/L (0-32) 03/07/23 05:09 ALT 19 U/L (0-33) 03/07/23 05:09 Alkaline Phosphatase 55 U/L (35-105) 03/07/23 05:09 Troponin T Baseline 6 ng/L (0-10) 03/07/23 05:09 Troponin T 120 Minute 6.00 ng/L (0-10) 03/07/23 07:03 Delta Troponin T 0 ABS# (0-10) 03/07/23 07:03 NT-Pro-B Natriuret Pep 60 pg/mL (0-125) 03/07/23 05:09 Total Protein 7.3 g/dL (6.6-8.7) 03/07/23 05:09 Albumin 4.2 g/dL (3.5-5.2) 03/07/23 05:09 Globulin 3.1 g/dL (1.3-4.6) 03/07/23 05:09 Lipase 42 U/L (13-60) 03/07/23 05:09 Discharge Plan Discharge Patient Disposition: Home Clinical Impression: Atypical chest pain Condition: Stable Prescriptions: New aspirin 81 mg tablet,delayed release (DR/EC) 81 mg PO DAILY Qty: 30 0RF No Action vitamin B complex Tablet 1 tab PO DAILY cholecalciferol (vitamin D3) 25 mcg (1,000 unit) capsule 25 mcg PO DAILY crivnsh-wsdf-fieel-oreg-capryl 100 mg-150 mg- 50 mg-150 mg capsule PO (DME) cane Device See Rx Instructions .Route Qty: 1 0RF Rx Instructions: As directed CBD Gummies PO BID polyethylene glycol 3350 [Miralax] 17 gram/dose powder 17 g PO DAILY estradiol [Gardenia] 0.075 mg/24 hr patch semiweekly 1 patch topical .twice weekly Qty: 8 12RF levalbuterol tartrate [Xopenex HFA] 45 mcg/actuation HFA aerosol inhaler 2 inh inhalation Q6H 90 Days Qty: 30 1RF ibuprofen 800 mg tablet 800 mg PO TID 90 Days Qty: 270 1RF Rx Instructions: 340 B furosemide 20 mg tablet 20 mg PO .1-2 tabs daily 90 Days Qty: 180 0RF tizanidine 2 mg tablet 2 mg PO TID PRN (Reason: muscle spasticity) 90 Days Qty: 270 0RF Rx Instructions: 340 B fluticasone propionate [Flonase Allergy Relief] 50 mcg/actuation spray,suspension 2 spray intranasal DAILY 90 Days Qty: 48 0RF Rx Instructions: administer into each nostril Discharge Orders: Discharge ED (Routine); Ordered 03/07/23 Ordered By: Cj Cardona Referrals: Carey Stout DO [Primary Care Provider] - Discharge Diet: Usual diet Discharge Activity: Limit activity as instructed Patient Instructions: Opioid Safety, Pain Management Activity Restrictions/Additional Instructions: You were seen today for chest pain. Your EKGs and cardiac enzymes were negative. Recommend you increase your Lasix to 40 daily for the next 3 days. Follow-up with your primary care doctor early next week in addition to this we will set you up for an outpatient Lexiscan sestamibi stress test avoid exertional activities until this is completed. Also recommend that you start taking a baby aspirin daily. 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 Emerita Cheatham
[2023-03-07] MEDS: FUROsemide 10 mg/mL SDV 4mL 40 MG IVP (05:14)
[2023-03-07] MEDS: aspirin 81 mg Chew Tablet 324 MG PO (05:14)
[2023-03-07] MEDS: lidocaine 2% viscous 15 ML, aluminum-mag hydrox-simethicon 30 ML, sucralfate oral liq 1 GM PO (05:21)
[2023-03-07 05:22] LABS: Basophils % 0.3 %; Eosinophils # 0.3 10^3/uL (0.0-0.8); Eosinophils % 3.4 %; Lymphocytes # 2.4 10^3/uL (0.8-4.8); Lymphocytes % 29.5 %; Mean Corpuscular HGB Conc 33.3 g/dL (30.0-36.0); Mean Corpuscular Hemoglobin 30.8 pg (28.0-34.0); Mean Corpuscular Volume 92.4 fl (81-99); Monocytes # 0.9 10^3/uL (0.2-0.9); Monocytes % 10.7 %; Neutrophils # 4.46 10^3/uL (1.8-7.7); Neutrophils % 55.8 %; Nucleated Red Blood Cells % 0 %; Platelet Count 332 10^3/cmm (130-400); Red Blood Count 4.22 10^6/uL (4.1-5.3)
[2023-03-07 05:33] LABS: INR 0.98 (0.8-1.2)
[2023-03-07 05:39] LABS: Albumin Level 4.2 g/dL (3.5-5.2); Chloride 103 mmol/L (98-107); Potassium 4.2 mmol/L (3.5-5.1); Sodium 141 mmol/L (136-145)
[2023-03-07 06:03] LABS: Troponin(5th) Baseline 6 ng/L (0-10)
[2023-03-07] MEDS: ketorolac 30 mg/mL INJ IVP (06:08)
[2023-03-07 06:13] LABS: Alanine Aminotransferase 19 U/L (0-33); Anion Gap 15.2 (5-19); Aspartate Amino Transferase 24 U/L (0-32); Blood Urea Nitrogen 17 mg/dL (6-20); Calcium 8.8 mg/dL (8.5-10.5); Carbon Dioxide 27 mmol/L (22-29); Globulin 3.1 g/dL (1.3-4.6); Glomerular Filtration Rate 87.2 mL/min (90-130); Glucose 89 mg/dL (65-115); Lipase 42 U/L (13-60); NT Pro B Type Natriuretic Pept 60 pg/mL (0-125); Osmolality Calculated 293 mOsm/kg (285-295); Total Bilirubin 0.3 mg/dL (0.15-1.2); Total Protein 7.3 g/dL (6.6-8.7)
[2023-03-07 06:25] VITALS: BP 119/79; PULSE 60; RESP 16; O2SAT 97
[2023-03-07 06:35] LABS: Alkaline Phosphatase 55 U/L (35-105)
[2023-03-07 07:00] VITALS: BP 112/80; PULSE 55; O2SAT 96
--- NOTE | 2023-03-07 07:02 | ECG_ITS ---
[facility] Test Date: 2023-03-07 Pat Name: Geno Wetzel Department: Room: Gender: Female Rn Pediatric: : 1970 Requested By: Michaelle Sofia Order Number: [id number] Lydia MD: Anel Herrera M.D. Measurements Intervals [place] Rate: 56 P: 57 MO: 179 QRS: 24 QRSD: 87 T: 59 QT: 413 QTc: 401 Interpretive Statements SINUS BRADYCARDIA POSSIBLE LEFT ATRIAL ENLARGEMENT [-0.1mV P-WAVE IN V1/V2] POSSIBLE RIGHT VENTRICULAR CONDUCTION DELAY [RSR (QR) IN V1/V2] Compared to ECG 03/07/2023 05:57:37 Sinus rhythm no longer present Electronically Signed On 03-07-2023 21:18:56 CDT by Anel Herrera M.D. [email or web address]
[2023-03-07 07:35] LABS: Troponin 5 2HR Delta 0 ABS# (0-10)
[2023-03-07 08:02] VITALS: BP 141/61; PULSE 58; RESP 12; O2SAT 95
--- NOTE | 2023-03-07 10:41 | DCPLANNER ---
Addendum entered by Georgie Dubose 06/14/23 12:06: stable manager received the following message from centralized scheduling regarding follow up appointment: We are unable to reach Geno Wetzel 68 to schedule the Ely Cardona ordered, inactivating account. Original Note: stable manager had message to schedule an outpatient stress test for patient. stable manager faxed signed order to centralized scheduling, who will call patient with appointment information.
--- NOTE | 2023-03-07 11:02 | ECG_ITS ---
[facility] Test Date: 2023-03-07 Pat Name: Geno Wetzel Department: Room: Gender: Female Broadcaster: : 1970 Requested By: Michaelle Sofia Order Number: [id number] Lydia MD: Anel Herrera M.D. Measurements Intervals [place] Rate: 73 P: 46 VA: 165 QRS: -5 QRSD: 89 T: 43 QT: 386 QTc: 427 Interpretive Statements SINUS RHYTHM MINIMAL VOLTAGE CRITERIA FOR LVH, CONSIDER NORMAL VARIANT [MEETS CRITERIA IN ONE OF: R(aVL), S(V1), R(V5), R(V5/V6)+S(V1)] No previous ECG available for comparison Electronically Signed On 03-07-2023 21:18:29 CDT by Anel Herrera M.D. [email or web address]
== END 2023-03-07 08:03 | disposition home or self-care (01) ==
PROVIDERS: Emergency Medicine; Emergency Provider Family Medicine; PCP Family Medicine
DX: R07.89 Other chest pain (principal)
CPT/HCPCS: 71045; 80053; 83690; 83880; 84484; 85025; 85610; 93005; 96374; 96375; 99285; J1885; J1940

== ENCOUNTER → 2023-06-27 08:09 | Outpatient (BNVA) | payer MEDICARE, SELFPAY | PROVIDERS: PCP Family Medicine; Referring Provider Nurse Practitioner Family; Visit Provider Psychiatry & Neurology Neurology | DX: R41.3 Other amnesia (principal); E55.9 Vitamin D deficiency, unspecified | CPT/HCPCS: 0346U; 36415; 82306; 82542; 82607; 82746; 83735; 83921; 86592; 86617; 86780; 99204 ==

== ENCOUNTER 2023-07-10 14:27 | Outpatient (CLI) | payer MEDICARE, SELFPAY ==
--- NOTE | 2023-07-10 14:45 | USCV_ITS ---
Wetzel Geno Age: 53 Gender: F : 1970 Exam Date: 07/10/2023 14:48 Ordering Phys: Benny Quintero MD Technologist: [place] [facility] [place] Indication: memory loss Risk Factors: Previous Vascular Surgery: Right Brachial BP: / Left Brachial BP: / Right Left Velocity (cm/s) Spectral Plaque Velocity (cm/s) Spectral Plaque Syst/Diast Broadening Syst/Diast Broadening 78.30/ 18.75 Prox CCA 80.80 / 29.50 69.50/ 27.60 Mid CCA 94.00 / 33.40 78.30/ 25.40 Distal CCA 68.40 / 21.80 79.40/ 38.60 Prox ICA 64.10 / 16.20 119.10/59.50 Mid ICA 109.10/ 27.60 133.40/54.00 Distal ICA 94.70 / 28.90 110.30 ECA 122.70 1.70 ICA/CCA 1.16 Antegrade Vertebral Antegrade 49.70/ 20.20 cm/s 68.40/ 27.60 cm/s Bi Subclavian Tri 64.50 170.9 0 FINDINGS Comparison: none available. No significant elevation of systolic or diastolic velocities. Waveforms are normal. No significant amount of calcified plaque or intimal thickening identified. CONCLUSIONS Normal carotid doppler ultrasound. Dr. Gracie Laws DO (Electronically Signed) Final Date: 10 July 2023 16:13 S
== END 2023-07-10 14:28 | disposition home or self-care (01) ==
PROVIDERS: PCP Family Medicine; Visit Provider Psychiatry & Neurology Neurology
DX: Z01.818 Encounter for other preprocedural examination (principal); R41.3 Other amnesia
CPT/HCPCS: 93880